=== PATIENT | female | born 1965 | race Caucasian/White ===

== ENCOUNTER 2018-07-22 09:06 | Emergency (ER) | payer MEDICAID, SELFPAY ==
[2018-07-22 09:07] VITALS: BP 119/80; PULSE 94; RESP 16; TEMP 36.3; O2SAT 99; BMI 31.5
[2018-07-22 09:13] VITALS: TEMP 36.3
--- NOTE | 2018-07-22 09:26 | RAD_ITS ---
STUDY: X-RAY CHEST REASON FOR EXAM: Female, 53 years old. TECHNIQUE: COMPARISON: None. FINDINGS: Frontal and lateral views of the chest were obtained. The lungs are clear and expanded. There is no demonstrated pleural abnormality. Normal size heart. Normal mediastinum and jaimie. Normal visualized pulmonary arteries. Normal visualized aortic arch and descending thoracic aorta. Normal visualized thoracic spine. Normal visualized ribs, clavicles, and shoulders. There is no demonstrated abnormality of the visualized soft tissue structures of the upper abdomen. RAD/Chest PA and Lateral IMPRESSION: Normal x-ray examination of the chest. Electronically Signed: Artie Munoz, at 11:45 EST Tel , Service support ,
[2018-07-22] MEDS: Ketorolac 30 MG/ML Syringe IV (09:39)
[2018-07-22] MEDS: 0.9% Normal Saline 1,000 ML 1000 ML IV ×2 (09:39→10:42)
[2018-07-22] MEDS: Ondansetron 4 MG/2 ML Vial IV (09:39)
[2018-07-22 09:44] LABS: Absolute Lymphocyte Count 2.19 X10^3/ul (0.83-4.51); Absolute Neutrophil Count 3.8 X10^3/uL (2.0-7.7); Basophil# 0.02 X10^3/uL; Basophil% 0.3 % (0-1); Eosinophil# 0.11 X10^3/uL; Eosinophils% 1.7 % (0-5); Hematocrit 40.9 % (37-47); Lymphocyte # 2.19 X10^3/ul (4.0); Lymphocyte % 33.9 % (19-41); Mean Corp Hgb Conc 31.8 g/gl (32-36); Mean Corpuscular Hgb 27.9 pg (27.0-32.0); Mean Corpuscular Volume 87.8 fL (81-99); Monocyte% 4.6 % (0-10); Neutrophil # 3.83 X10^3/uL (2.7-7.7); Neutrophil % 59.3 % (47-70); POSITIVE COUNT NO; POSITIVE DIFFERENTIAL NO; POSITIVE MORPHOLOGY NO; Platelet Count 297 K/mm3 (150-450); RBC Distribution Width CV 13.8 % (11.6-14.6); RBC Distribution Width SD 44.2 fl (35.1-43.9); Red Blood Count 4.66 M/mm3 (4.2-5.4); White Blood Count 6.5 K/mm3 (4.4-11.0)
[2018-07-22 09:53] LABS: ALB/GLOB Ratio 0.9 RATIO (0.9-2.4); AST(SGOT) 9 U/L (15-37); Alanine Aminotransfer ALT/SGPT 15 U/L (13-56); Albumin, Serum 3.3 g/dL (3.2-5.0); Alkaline Phosphatase 56 U/L (45-117); Anion Gap 7 (5-15); BUN 11 mg/dL (7-18); BUN/Creat Ratio 13.1 RATIO (10-20); Calcium,Total 8.3 mg/dL (8.5-10.1); Chloride 107 mmol/L (98-107); Creatinine, Serum 0.84 mg/dL (0.55-1.02); EST Glomerular Filtration Rate 76 mL/min (>60); Est Glom Filt Rate - Afr Amer 91 mL/min (>60); Globulin 3.5 g/dL (2.2-4.2); Glucose 108 mg/dL (74-106); Lipase 84 U/L (73-393); Potassium 4.2 mmol/L (3.5-5.1); Protein, Total 6.8 g/dL (6.4-8.2); Sodium Level 141 mmol/L (136-145)
--- NOTE | 2018-07-22 09:58 | ED.VISSUMM ---
- ER Visit Summary Date of Service: 07/22/18 Chief Complaint: Vomiting diarrhea History of Present Illness: The patient is a 53 F who presents with 3 days of vomiting and diarrhea. She has not had any of those today. She notes a cough and runny nose and subjective fever. She states she feels like she has been hit by a bus. Patient called EMS today for transportation to the hospital. The gave her a 200 cc fluid bolus. Her heart rate for EMS was 120. Physical Examination: Afebrile vital signs are stable Gen: Well-nourished well-developed Head: Normocephalic atraumatic Eyes: Perrl EOMI ENT: TMs clear rhinorrhea moist mucous membranes Neck: Supple no lymphadenopathy no JVD nontender CVS: Regular rate rhythm no murmurs normal S1-S2 Respiratory: No distress clear to auscultation bilaterally chest nontender patient has a cough Abdomen: Soft nontender nondistended normal bowel sounds no masses Back: Nontender Extremity: Nontender no edema Skin: Normal color no rash Neuro: alert orientated ?3 CN II-XII intact normal strength sensation reflexes gait cerebellar Psych: Normal affect normal mood Test Results: CBC CMP and lipase were normal. Chest x-ray is negative for infiltrate. Influenza swab is negative. Emergency Department Course and Treatment: Patient received 2 L IV fluids Zofran and Toradol. She will be discharged home with supportive care. I will write for Zofran and encouraged Tylenol ibuprofen. Return if worsening or concerns. Impression: 1. Acute Viral Gastroneuritis This note was generated with [employer] dictation software. It may contain incorrect words, spelling, and punctuation that were not noted in review of the chart prior to signing ED Disposition - Plan for ED Patient: Disposition: Home or Assisted Living Chief Complaint: Nausea/Vomiting/Diarrhea Instructions: ED Gastroenteritis Viral Prescriptions: Ondansetron [Zofran Odt] 4 mg PO Q6H PRN PRN #10 tab PRN Reason: Nausea Referrals: Miles Schneider MD [STAFF PHYSICIAN] - 3-5 Days if not improving
[2018-07-22 11:21] VITALS: BP 132/66; PULSE 71; RESP 15; O2SAT 98
== END 2018-07-22 11:23 | disposition home or self-care (01) ==
PROVIDERS: Emergency Provider Emergency Medicine
DX: K52.9 Noninfective gastroenteritis and colitis, unspecified (principal); Z72.0 Tobacco use
CPT/HCPCS: 71046; 80053; 83690; 85025; 87804; 96361; 96374; 96375; 99285; J7030; J2405

== ENCOUNTER 2018-07-25 12:31 | Emergency (ER) | payer MEDICAID, SELFPAY ==
[2018-07-25] VITALS (10 sets, daily range): BP systolic 119–144; BP diastolic 82–88; PULSE 94–107; RESP 13–18; TEMP 36.5–37; O2SAT 96–100; BMI 30.9
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
--- NOTE | 2018-07-25 14:40 | ED.VISSUMM ---
- ER Visit Summary Date of Service: 07/25/18 Chief Complaint: Scared of myself History of Present Illness: The patient is a 53 F who presents stating that she is scared of herself. She has had thoughts of hurting herself for quite some time but worsened recently. She denies any specific plan. She stopped using amphetamines 4 days ago. She does admit to attempting suicide in the past. She sees [facility] at the [facility] center. She was seen in the ER for nausea, vomiting, diarrhea, and cough on July 22. Labs including influenza swab were negative at that time. Physical Examination: Vital signs unremarkable. Patient is lying in bed, tearful and anxious. Head neck examination is grossly unremarkable. Heart is regular rate and rhythm. Lung sounds are clear. Abdomen is soft and nontender. Psychiatric evaluation reveals her to be tearful and anxious. She does admit to suicidal thoughts without a specific plan. Test Results: CBC and chemistry studies are unremarkable. test negative. EtOH is negative. Tox screen is positive for amphetamines. Emergency Department Course and Treatment: Patient was seen by staff from the [facility] center. Staff member here knows the patient from the [facility] and just saw her 2 weeks ago. She agrees the patient has significantly decompensated since that time. She will require transfer. Treatment Plan: [] Disposition: Transfer Impression: Suicidal ideation This note was generated with [employer] dictation software. It may contain incorrect words, spelling, and punctuation that were not noted in review of the chart prior to signing ED Disposition - Plan for ED Patient: Chief Complaint: Diarrhea Referrals: Care Physician,No Primary [Primary Care Provider] -
--- NOTE | 2018-07-25 14:50 | CM.ED ---
SOCIAL SERVICE ASSESSMENT REFERRAL DATE:07/25/18 DATE OF ASSESSMENT: 07/25/18 INFORMANT: NURSING REASON FOR CONSULT: SUICIDAL INFORMATION OBTAINED FROM: PATIENT AND NURSE LIVING ARRANGEMENTS: PATIENT REPORTS LIVES HOME WITH BOYFRIEND IN A SINGLE STORY HOME WITH NO ACCESS ISSUES. SUPPORTS: PATIENT REPORTS LIMITED SUPPORTS. PT STATES ONLY SUPPORT IS BOYFRIEND, NAKUL DURING. SOCIAL/FAMILY STRESSORS: PATIENT STATES HAS BEEN HAVING SUICIDAL THOUGHTS AND IS NOT ON ANY MEDICATIONS. PATIENT RECENTLY MET WITH DR. DACOSTA AT THE [facility] AND GAVE PERMISSION FOR THIS WORKER TO CALL THE [facility] TO CHECK ON NEXT APPOINTMENT. MENTAL HEALTH HX: PATIENT STATES WAS DIAGNOSED WITH BIPOLAR DISORDER AND SCHIZOPHRENIA 18 YEARS AGO. PATIENT STATES FOLLOWS WITH THE [facility] AND HAS NOT BEEN ON MEDICATIONS IN OVER A YEAR. SUBSTANCE ABUSE HX: PATIENTS ADMITS TO HX OF METH AND REPORTS HAS NOT USED IN OVER A YEAR. PATIENT REPORTS METH IS THE ONLY THING THAT HELPS WITH HER MENTAL HEALTH. INTERVENTIONS: PATIENT TO BE ASSESSED BY THE [facility] D/T SUICIDAL IDEATION WITH PLAN. PATIENT ALSO MADE THREATS TO THIS WORKER, I THINK YOU NEED TO LEAVE OR I AM GOING TO HURT YOU. ATTEMPTED TO EXPLAIN SUICIDAL PRECAUTIONS WITH PATIENT AND THAT A SITTER WILL BE PRESENT WITH PATIENT IN THE ROOM. PATIENT DID VERBALIZE UNDERSTANDING. ASSESSMENT: SOCIAL SERVICE ASSESSMENT COMPLETED. PATIENT IS A 53 Y/O FEMALE WHO CAME TO THE ED FOR DIARRHEA AND REPORTS JUST SAID THAT TO GET HELP. PATIENT STATES IS HAVING SUICIDAL THOUGHTS AND PLAN IS TO JUMP OFF THE BRIDGE BY AN OVERPASS. PATIENT ADMITS TO HX OF MENTAL HEALTH AND STATES WAS DIAGNOSED WITH BIPOLAR DISORDER AND SCHIZOPHRENIA. PATIENT STATES FOLLOWS WITH DR. DACOSTA AT THE [facility]. PATIENT ADMITS TO HX OF SUBSTANCE USE: METH AND REPORTS HAS NOT USED IN OVER 1 YEAR. PATIENT LAID IN BED WITH EYES CLOSED DURING ASSESSMENT. WHILE ATTEMPTING TO ASK ADDITIONAL QUESTIONS PATIENT ROLLED OVER ON SIDE AWAY FROM THIS WORKER AND STATED, I THINK YOU NEED TO LEAVE OR I'M GOING TO HURT YOU. INFORMED PATIENT THAT A SPOILAGE WORKER WILL BE OVER TO ASSESS PATIENT D/T SUICIDAL THOUGHTS. PATIENT STATES HAS BEEN PLACED IN A PSYCH FACILITY BEFORE AND VERBALIZES UNDERSTANDING OF CRISIS ASSESSMENT. UPDATED NURSING ON THIS WORKER'S ASSESSMENT OF PATIENT. SPOILAGE WORKER TO EVAL. PLAN: PATIENT TO BE EVALUATED BY CRISIS.
[2018-07-25 15:00] LABS: Absolute Lymphocyte Count 2.39 X10^3/ul (0.83-4.51); Absolute Neutrophil Count 4.4 X10^3/uL (2.0-7.7); Basophil# 0.01 X10^3/uL; Basophil% 0.1 % (0-1); Eosinophil# 0.13 X10^3/uL; Eosinophils% 1.8 % (0-5); Hematocrit 44.8 % (37-47); Hemoglobin 14.3 g/dl (12.0-15.0); Lymphocyte # 2.39 X10^3/ul (4.0); Lymphocyte % 33.3 % (19-41); Mean Corp Hgb Conc 31.9 g/gl (32-36); Mean Corpuscular Hgb 28.1 pg (27.0-32.0); Mean Corpuscular Volume 88.2 fL (81-99); Mean Platelet Vol. 9.2 fl (6.2-12.0); Monocyte# 0.29 X10^3/uL; Neutrophil # 4.35 X10^3/uL (2.7-7.7); Neutrophil % 60.8 % (47-70); Platelet Count 326 K/mm3 (150-450); RBC Distribution Width CV 13.5 % (11.6-14.6); RBC Distribution Width SD 43.8 fl (35.1-43.9); Red Blood Count 5.08 M/mm3 (4.2-5.4); White Blood Count 7.2 K/mm3 (4.4-11.0)
[2018-07-25 15:02] LABS: POSITIVE COUNT NO; POSITIVE DIFFERENTIAL NO; POSITIVE MORPHOLOGY NO
[2018-07-25 15:09] LABS: Anion Gap 7 (5-15); BUN 10 mg/dL (7-18); BUN/Creat Ratio 12.2 RATIO (10-20); Calcium,Total 9.1 mg/dL (8.5-10.1); Chloride 104 mmol/L (98-107); Creatinine, Serum 0.82 mg/dL (0.55-1.02); EST Glomerular Filtration Rate 78 mL/min (>60); Est Glom Filt Rate - Afr Amer 94 mL/min (>60); Estimated Creatinine Clearance 72.22 ml/min; Glucose 84 mg/dL (74-106); Sodium Level 139 mmol/L (136-145)
[2018-07-25 15:34] LABS: Alcohol, Blood (Medical)-Serum < 3.0 mg/dL
[2018-07-25 15:38] LABS: Pregnancy, Serum, hCG Quali. NEGATIVE Negative (0-9 Nonpreg)
--- NOTE | 2018-07-25 16:33 | NURSING ---
CALLED CRISIS, JUSTINA WILL BE MADE AWARE
[2018-07-25 17:36] LABS: Amphetamine Urine VISTA POSITIVE (<1000 ng/mL); Barbiturate Urine VISTA NEGATIVE (< 200 ng/mL); Benzodiazepine Urine VISTA NEGATIVE (< 200 ng/mL); Cocaine Urine VISTA NEGATIVE (< 300 ng/mL); Ecstacy Urine VISTA NEGATIVE (< 500 ng/mL); Methadone Urine VISTA NEGATIVE (< 300 ng/mL); PCP Urine VISTA NEGATIVE (< 25 ng/mL); THC Urine VISTA NEGATIVE (< 50 ng/mL); Vista UDS pH Range 6
--- NOTE | 2018-07-25 17:48 | NURSING ---
PATRICIA, CRISIS, HERE
--- NOTE | 2018-07-25 23:41 | ED.RN ---
INFORMED BY CRISIS THAT THIS PT [facility]HD ACCEPTANCE AT 2330, UNABLE TO GET TRANSPORT TILL MORNING
[2018-07-26] VITALS (10 sets, daily range): BP systolic 123–124; BP diastolic 82–97; PULSE 104–112; RESP 13–16; O2SAT 97
--- NOTE | 2018-07-26 00:34 | ED.RN ---
REPORT CALLED TO [facility]. TRANSPORT UNAVAILABLE UNTIL MORNING.
--- NOTE | 2018-07-26 06:28 | ED.RN ---
patient awoke and stated she is leaving. Advised patient that she has been accepted to [facility] and she is pink slipped and unable to leave. Patient does not agree that she has been here for 73 hours and is leaving. Patient redirected and laid back down to sleep.
--- NOTE | 2018-07-26 07:10 | NURSING ---
CALLED [facility]. ETA IS [phone]
== END 2018-07-26 09:12 | disposition home or self-care (01) ==
PROVIDERS: Emergency Provider Emergency Medicine
DX: R45.851 Suicidal ideations (principal); F41.9 Anxiety disorder, unspecified; Z72.0 Tobacco use; F15.90 Other stimulant use, unspecified, uncomplicated
CPT/HCPCS: 80048; 80307; 80320; 84703; 85025; 99285; G0480

== ENCOUNTER 2018-08-11 13:23 | Emergency (ER) | payer MEDICAID, SELFPAY ==
[2018-07-25 12:32] VITALS: BMI 30.9
[2018-08-11] VITALS (7 sets, daily range): BP systolic 118–134; BP diastolic 81–91; PULSE 16–114; RESP 16–18; TEMP 36.6; O2SAT 94–97; BMI 31.5
--- NOTE | 2018-08-11 13:47 | NURSING ---
Pt wrapped her crack candelario in several papertowels and crushed it. Asked pt to not due to risk of being cut and scattering glass fragments but pt became angry and states that RN was disrespecting her. Pt then denied any suiciidal iideation, and stated but ii am feeling homicidal; agaiinst you looking directly at this RN. Pt states I want to make you hurt.
[2018-08-11 14:07] LABS: Absolute Lymphocyte Count 2.43 X10^3/ul (0.83-4.51); Absolute Neutrophil Count 6.3 X10^3/uL (2.0-7.7); Basophil# 0.02 X10^3/uL; Basophil% 0.2 % (0-1); Eosinophil# 0.12 X10^3/uL; Eosinophils% 1.3 % (0-5); Hematocrit 36.5 % (37-47); Hemoglobin 11.5 g/dl (12.0-15.0); Lymphocyte # 2.43 X10^3/ul (4.0); Lymphocyte % 25.9 % (19-41); Mean Corp Hgb Conc 31.5 g/gl (32-36); Mean Corpuscular Hgb 27.7 pg (27.0-32.0); Mean Platelet Vol. 9.3 fl (6.2-12.0); Monocyte# 0.46 X10^3/uL; Monocyte% 4.9 % (0-10); Neutrophil # 6.33 X10^3/uL (2.7-7.7); Neutrophil % 67.5 % (47-70); Platelet Count 376 K/mm3 (150-450); RBC Distribution Width CV 14.1 % (11.6-14.6); RBC Distribution Width SD 44.9 fl (35.1-43.9); Red Blood Count 4.15 M/mm3 (4.2-5.4); White Blood Count 9.4 K/mm3 (4.4-11.0)
[2018-08-11 14:08] LABS: POSITIVE COUNT NO; POSITIVE DIFFERENTIAL NO; POSITIVE MORPHOLOGY NO
[2018-08-11 14:18] LABS: Anion Gap 14 (5-15); BUN 10 mg/dL (7-18); BUN/Creat Ratio 12.5 RATIO (10-20); Chloride 116 mmol/L (98-107); EST Glomerular Filtration Rate 80 mL/min (>60); Est Glom Filt Rate - Afr Amer 96 mL/min (>60); Estimated Creatinine Clearance 74.02 ml/min; Glucose 94 mg/dL (74-106); Sodium Level 155 mmol/L (136-145)
[2018-08-11 14:25] LABS: Pregnancy, Serum, hCG Quali. NEGATIVE Negative (0-9 Nonpreg)
[2018-08-11 14:25] LABS: Amphetamine Urine VISTA POSITIVE (<1000 ng/mL); Barbiturate Urine VISTA NEGATIVE (< 200 ng/mL); Benzodiazepine Urine VISTA NEGATIVE (< 200 ng/mL); Cocaine Urine VISTA NEGATIVE (< 300 ng/mL); Ecstacy Urine VISTA NEGATIVE (< 500 ng/mL); Methadone Urine VISTA NEGATIVE (< 300 ng/mL); PCP Urine VISTA NEGATIVE (< 25 ng/mL); THC Urine VISTA POSITIVE (< 50 ng/mL); Vista UDS pH Range 5
--- NOTE | 2018-08-11 14:38 | ED.RN ---
CALLED [facility]; JUSTINA WILL CALL BACK WITH CRISIS
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
--- NOTE | 2018-08-11 14:40 | ED.RN ---
SPOKE WITH JUSTINA AT CRISIS; STATED HE IS HEADED TO OUR FACILITY TO EVALUATE A PT ON [facility], AFTER THAT HE HAS TO GO TO [facility] TO EVAL A PT THERE THEN HE WILL BE BACK TO SEE THIS PT
[2018-08-11 15:12] LABS: Alcohol, Blood (Medical)-Serum < 3.0 mg/dL
--- NOTE | 2018-08-11 15:20 | ED.DCSUM_ITS ---
- ER Visit Summary Date of Service: 08/11/18 Chief Complaint: Suicidal ideation History of Present Illness: The patient is a 53 F with history of bipolar disorder and schizophrenia. Patient was recently admitted to [facility] for approximately 8 days. Patient states she was discharged back to [facility] but [facility]. She was staying with a friend as well as her daughter but was kicked out of both places. She somehow ended up at a local [facility] this morning and the director communications brought the patient in. Patient admits to using meth again. She reports suicidal ideation with plan to jump from a bridge. Physical Examination: Vital signs significant only for heart rate of 114. Patient has labile emotions. She is in no acute distress. Head neck examination grossly unremarkable. Heart is regular rate and rhythm. Lungs sounds are clear. Abdomen is soft and nontender. Psychiatric evaluation reveals tangential thought process with pressured speech and suicidal thoughts. Test Results: CBC reveals a normal white count hemoglobin 11.5. Chemistry studies significant for sodium of 155 and a chloride of 116. Renal function is normal. Tox screen is positive for cannabinoids and amphetamines. EtOH is negative. Emergency Department Course and Treatment: Patient is being given water to drink. She will have electrolytes rechecked. Counseling center has been contacted for evaluation. Social work is also been involved in the patient's care. Treatment Plan: [] Disposition: Pending crisis evaluation Impression: 1. Suicidal ideation 2. Hypernatremia This note was generated with [employer] dictation software. It may contain incorrect words, spelling, and punctuation that were not noted in review of the chart prior to signing ED Disposition - Plan for ED Patient: Chief Complaint: Suicidal Referrals: Care Physician,No Primary [Primary Care Provider] -
[2018-08-11 17:21] LABS: Anion Gap 9 (5-15); BUN 9 mg/dL (7-18); BUN/Creat Ratio 12.9 RATIO (10-20); Calcium,Total 8.6 mg/dL (8.5-10.1); Chloride 109 mmol/L (98-107); EST Glomerular Filtration Rate 94 mL/min (>60); Est Glom Filt Rate - Afr Amer 114 mL/min (>60); Glucose 91 mg/dL (74-106); Potassium 3.6 mmol/L (3.5-5.1); Sodium Level 143 mmol/L (136-145)
--- NOTE | 2018-08-11 18:03 | ED.RN ---
PER JUSTINA WITH CRISIS; HE JUST GOT TO [facility]; HE HAS NO ETA ON ARRIVAL TO OUR FACILITY
--- NOTE | 2018-08-11 21:18 | EKG12_ITS ---
Test Reason : Blood Pressure : / mmHG Vent. Rate : 095 BPM Atrial Rate : 095 BPM P-R Int : 192 ms QRS Dur : 078 ms QT Int : 368 ms P-R-T Axes : 074 027 041 degrees QTc Int : 462 ms Sinus rhythm with occasional Premature ventricular complexes Possible Left atrial enlargement Borderline ECG Confirmed by FREDRICK PIKE, BAUTISTA ([id number]), purchasing expeditor MYLENE BARCLAY ([id number]) on 08/13/2018 5:08:51 PM Referred By: BRIONNA Confirmed By:BAUTISTA ALCALA MD
[2018-08-11 21:35] LABS: Bacteria 0 SEEN /hpf (None Seen); Mucous, Urine 0 SEEN /hpf (<or=2+); Red Blood Cells-Urine 0 SEEN /hpf (0-5)
[2018-08-11 21:36] LABS: AST(SGOT) 16 U/L (15-37); Alanine Aminotransfer ALT/SGPT 22 U/L (13-56); Albumin, Serum 3.3 g/dL (3.2-5.0); Alkaline Phosphatase 55 U/L (45-117); Bilirubin, Direct 0.15 mg/dL (0.00-0.30); Globulin 3.1 g/dL (2.2-4.2); Protein, Total 6.4 g/dL (6.4-8.2)
[2018-08-11 21:43] LABS: Color, Urine Yellow (Yellow); Glucose, Dipstick Normal (Normal); Ketone-Dipstick 5 mg/dl (Negative); Leukocyte Esterase-Dipstick 100 /ul (Negative); Nitrite-Dipstick Negative (Negative); Occult Blood-Urine Negative /ul (Negative); Protein-Dipstick Negative (Negative); Urine Bilirubin Dipstick Negative (Negative); Urine Clarity Turbid (Clear); Urine Urobilinogen Normal (Normal); Urine pH 6.5 (5.0 - 8.0)
[2018-08-11 22:17] LABS: Squamous Epithelial Cells - UA 0-5 SEEN /hpf (5-10); White Blood Cells 10-25 SEEN /hpf (0-5)
[2018-08-11 22:18] LABS: Amorphous Sediment 2+
[2018-08-12] VITALS (10 sets, daily range): BP systolic 108–127; BP diastolic 58–75; PULSE 70–101; RESP 12–19; TEMP 36.7; O2SAT 96–99
--- NOTE | 2018-08-12 01:16 | ED.RN ---
THIS RN RECEIVED A CALL FROM [facility]. PT HAS BEEN ACCEPTED AND IS AWAITING AN AVAILABLE BED.
--- NOTE | 2018-08-12 11:05 | NURSING ---
CRISIS CALLED. SHE WILL BE HERE TO WORK ON ADMISSION
--- NOTE | 2018-08-12 11:27 | NURSING ---
TJ,CRISIS, HERE FOR PATIENT
--- NOTE | 2018-08-12 12:49 | NURSING ---
ACCEPTED AT [facility]
--- NOTE | 2018-08-12 16:30 | NURSING ---
CALLED [facility] ABOUT ETA. WILL BE ANOTHER 30 TO 45 MIN
--- NOTE | 2018-08-12 17:20 | ED.RN ---
EMS arrives to transport at 1705. Bedside report given. Pt belongings given to squad. Pt transfers with EMS with no resistance.
== END 2018-08-12 17:20 ==
PROVIDERS: Emergency Medicine; Emergency Provider Emergency Medicine
DX: R45.851 Suicidal ideations (principal); E87.0 Hyperosmolality and hypernatremia; Z72.0 Tobacco use; F15.90 Other stimulant use, unspecified, uncomplicated
CPT/HCPCS: 36415; 80048; 80076; 80307; 80320; 81001; 84703; 85025; 93005; 99284; G0480

== ENCOUNTER → 2020-05-28 13:21 | Outpatient (CLI) | payer MEDICAID, SELFPAY ==
[2020-05-25 09:16] VITALS: BMI 35.4
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
== END ==
PROVIDERS: Referring Provider Psychiatry & Neurology Neurology; Visit Provider Psychiatry & Neurology Neurology
DX: G56.03 Carpal tunnel syndrome, bilateral upper limbs (principal); M54.2 Cervicalgia
CPT/HCPCS: 95886; 95910

== ENCOUNTER 2020-12-01 12:29 | Emergency (ER) | payer MEDICAID, SELFPAY ==
[2020-05-25 09:16] VITALS: BMI 35.4
[2020-12-01 12:30] VITALS: BP 135/85; PULSE 78; RESP 16; TEMP 36.8; O2SAT 99; BMI 33.3
--- NOTE | 2020-12-01 13:06 | EX.ED.UPPERE ---
HPI History of Present Illness Chief Complaint: Laceration Narrative Narrative: Patient presents with right hand laceration it is in between the fourth and fifth digit after working on a car window mechanism. This happened 13 hours ago. No other injuries. [facility] Medical History (Updated 12/01/20 @ 13:[address] Hardy Aldana MD) Bipolar disorder Home Medications albuterol sulfate 90 mcg/actuation aerosol inhaler INHALATION 05/25/20 [History Last Taken Unknown] benztropine 1 mg tablet 1 mg PO DAILY tab 05/25/20 [History Last Taken Unknown] cholecalciferol (vitamin D3) 50 mcg (2,000 unit) capsule 2,000 unit PO DAILY cap 05/25/20 [History Last Taken Unknown] cyanocobalamin (vitamin B-12) 500 mcg tablet 500 mcg PO DAILY 05/25/20 [History Last Taken Unknown] fluoxetine 20 mg capsule 20 mg PO DAILY cap 05/25/20 [History Last Taken Unknown] omeprazole 40 mg capsule,delayed release 40 mg PO DAILY 05/25/20 [History Last Taken Unknown] ondansetron HCl 4 mg tablet ea PO 05/25/20 [History Last Taken Unknown] potassium chloride 20 mEq tablet,extended release(part/cryst) 20 meq PO DAILY tab 05/25/20 [History Last Taken Unknown] risperidone 2 mg tablet 2 mg PO DAILY tab 05/25/20 [History Last Taken Unknown] trazodone 100 mg tablet 100 mg PO BID tab 05/25/20 [History Last Taken Unknown] baclofen 10 mg tablet 10 mg PO TID PRN #90 tab 06/17/20 [Rx Last Taken Unknown] diclofenac sodium 75 mg tablet,delayed release 75 mg PO BID PRN #60 tab 06/17/20 [Rx Last Taken Unknown] loratadine 10 mg tablet 10 mg PO DAILY #30 tab 06/17/20 [Rx Last Taken Unknown] Allergy/AdvReac Type Severity Reaction Status Date / Time duloxetine Allergy Unknown Itching/Preet Verified 12/01/20 12:30 h pregabalin Allergy Unknown Rash Verified 12/01/20 12:30 codeine phosphate Allergy Itching Verified 12/01/20 12:30 [From Tylenol-Codeine #3] hydrocodone bitartrate Allergy Itching Verified 12/01/20 12:30 [From Vicodin] Family History Mother Alzheimers disease Grandmother Alzheimers disease Social History (Updated 06/17/20 @ 18:[address] Adryan Aguilera MD) Smoking Status: Current every day smoker ROS ROS ED ROS Narrative Past medical history: none Medications: Reviewed Social history: Noncontributory Review of systems: Musculoskeletal: Laceration as above Skin: Laceration as above Neurological: No weakness or paresthesias Hematologic: No easy bleeding or easy bruising EXAM Physical Exam Narrative Exam Narrative: Physical exam General: Patient does not appear in significant distress . Head: Normocephalic, Atraumatic Neck: No C-spine tenderness Cardiovascular: Regular rate, Regular rhythm Respiratory: No distress, CTA bilaterally Back: Nontender, Normal Inspection. Extremities: There is a 0.5 cm laceration in between the fourth and fifth digit it looks like it is already healing there is pink granulation tissue. No neurovascular compromise. Skin: As above Neurological: Normal strength and sensation Const Vital Signs: 12/01/20 12:30 Temperature 98.3 F Temperature Source Temporal Pulse Rate 78 Respiratory Rate 16 Blood Pressure 135/85 H Blood Pressure Mean 101 Pulse Ox 99 Oxygen Delivery Method Room Air MDM MDM MDM Narrative Medical decision making narrative: Wound is small and too old to suture. We will bandage. Tetanus is up-to-date. Discharge Plan Triage Chief Complaint: Laceration ED Provider: Hardy Aldana Dx/Rx/DC Orders Clinical Impression: Laceration Instructions: ED Laceration, Old: Not Sutured Prescriptions: No Action cyanocobalamin (vitamin B-12) [Vitamin B-12] 500 mcg tablet 500 mcg PO DAILY RF: 0 omeprazole 40 mg capsule,delayed release(DR/EC) 40 mg PO DAILY RF: 0 albuterol sulfate 90 mcg/actuation HFA aerosol inhaler INHALATION RF: 0 ondansetron HCl 4 mg tablet PO RF: 0 fluoxetine 20 mg capsule 20 mg PO DAILY RF: 0 risperidone 2 mg tablet 2 mg PO DAILY RF: 0 benztropine 1 mg tablet 1 mg PO DAILY RF: 0 trazodone 100 mg tablet 100 mg PO BID RF: 0 cholecalciferol (vitamin D3) 50 mcg (2,000 unit) capsule 2,000 unit PO DAILY RF: 0 potassium chloride 20 mEq tablet,ER particles/crystals 20 meq PO DAILY RF: 0 diclofenac sodium 75 mg tablet,delayed release (DR/EC) 75 mg PO BID PRN (Reason: headache/pain) Qty: 60 RF: 1 loratadine 10 mg tablet 10 mg PO DAILY Qty: 30 RF: 2 baclofen 10 mg tablet 10 mg PO TID PRN (Reason: muscle pain and spasm) Qty: 90 RF: 2 Primary Care Provider: [facility] Doctor,Out of Referrals: [facility] Doctor,Out of [Primary Care Provider] - 2 Days for wound check
== END 2020-12-01 13:37 | disposition home or self-care (01) ==
PROVIDERS: Emergency Provider Emergency Medicine
DX: S61.411A Laceration without foreign body of right hand, initial encounter (principal); F17.200 Nicotine dependence, unspecified, uncomplicated; X58.XXXA Exposure to other specified factors, initial encounter; Z79.899 Other long term (current) drug therapy
CPT/HCPCS: 99282

== ENCOUNTER 2023-12-04 02:12 | Emergency (ER) | payer MEDICAID, SELFPAY ==
[2023-12-04 02:14] VITALS: BP 134/91; PULSE 105; RESP 16; TEMP 36.2; O2SAT 97; BMI 28.6
--- NOTE | 2023-12-04 02:42 | RAD_ITS ---
INDICATION: PAIN, INJURY EXAMINATION/TECHNIQUE: X-RAY - RIGHT XR Hand Min 3 Views 3 VIEWS COMPARISON: FINDINGS: BONES: Acute fracture base of the fifth metacarpal with minimal dorsal displacement. JOINTS: No dislocation. SOFT TISSUES: Soft tissue swelling dorsally overlying the metacarpals. RAD/Hand Min 3 Views IMPRESSION: Acute fracture proximal fifth metacarpal. Electronically Signed: Zonia Lala MD at 4:03 EDT ,
--- NOTE | 2023-12-04 03:01 | EX.ED.UPPERE ---
HPI History of Present Illness Chief Complaint: Upper Extremity Injury Informant: patient Narrative Narrative: Patient states yesterday she fell onto her right hand on accident. She injured it it has been swollen, she went to hospital in [place] and had x-rays but was told it was negative and she does not believe them and wants us to do x-rays as well because it was more swollen, bruised, and very painful. She is right-hand dominant. She denies any numbness. She can move her wrist okay, the pain is mostly in the ulnar aspect of the hand moving her fingers is more painful. [facility] Medical History (Updated 12/04/23 @ 04:[address] Geraldo Loredo MD) Bipolar disorder Home Medications benztropine 1 mg tablet 1 mg PO DAILY 05/25/20 [History Last Taken Unknown] cholecalciferol (vitamin D3) 50 mcg (2,000 unit) capsule 2,000 unit PO DAILY 05/25/20 [History Last Taken Unknown] cyanocobalamin (vitamin B-12) 500 mcg tablet (Vitamin B-12) 500 mcg PO DAILY 05/25/20 [History Last Taken Unknown] omeprazole 40 mg capsule,delayed release 40 mg PO DAILY 05/25/20 [History Last Taken Unknown] risperidone 2 mg tablet 2 mg PO DAILY 05/25/20 [History Last Taken Unknown] trazodone 100 mg tablet 100 mg PO BID 05/25/20 [History Last Taken Unknown] loratadine 10 mg tablet 10 mg PO DAILY #30 tabs 06/17/20 [Rx Last Taken Unknown] Allergy/AdvReac Type Severity Reaction Status Date / Time duloxetine Allergy Unknown Itching/Preet Verified 12/04/23 02:13 h pregabalin Allergy Unknown Rash Verified 12/04/23 02:13 codeine phosphate Allergy Itching Verified 12/04/23 02:13 [From Tylenol-Codeine #3] hydrocodone bitartrate Allergy Itching Verified 12/04/23 02:13 [From Vicodin] Family History Mother Alzheimers disease Grandmother Alzheimers disease Social History Smoking Status: Current every day smoker tobacco type: cigarettes ROS ROS ED Constitutional Constitutional ED: Denies chills or fever(s) Musculoskeletal Musculoskeletal: Reports extremity pain; Denies neck pain Integumentary Denies Abrasions, rash or wounds Neurologic Neurologic: Denies paresthesias or weakness EXAM Physical Exam Const Vital Signs: 12/04/23 02:14 Temperature 97.2 F L Temperature Source Temporal Pulse Rate 105 H Respiratory Rate 16 Blood Pressure 134/91 H Blood Pressure Mean 105 Pulse Ox 97 Positive well nourished and well developed General Appearance ED: well developed and NAD Neck full ROM and supple Back/Spine normal ROM and normal to inspection Extremity Extremity Narrative: Very swollen right hand without involvement of the fingers. Limited range of motion of the fingers due to pain in the hand. The fingers are nontender, except for the MCPJ #4 and 5, she is most tender in those metacarpals, but they are difficult to palpate through all of the edema throughout the dorsum of the hand. She has ecchymosis in the middle of the palm. The hypothenar and thenar eminences are soft and nondistended. She can move the thumb okay she can move the wrist okay without significant discomfort and does not have any pain or tenderness there with palpation. There are no open wounds or deformities. She is holding the majority of the fingers in gentle flexion position of comfort no rotational deformity seen. Neuro oriented x3, no focal motor deficits and no sensory deficits noted Sensorium / Orientation: alert Psych mental status grossly normal and thought process normal Skin no wounds Rashes: no rashes MDM MDM MDM Narrative Medical decision making narrative: Three-view x-ray series of the right hand suspicious for acute fracture at proximal fifth metacarpal on my interpretation. Radiology in agreement. Patient placed in an ulnar gutter splint. She states she is recovering addict and does not want any prescription narcotics for pain but she except some ibuprofen and an orthopedic referral. Procedures Upper Extremity Splints Upper Extremity Splint: Orthoglass and Ulnar gutter (Short arm) Splint Fabrication: Fabricated Location: Right (Neurovascularly intact distally after placement) Discharge Plan Triage Chief Complaint: Upper Extremity Injury ED Provider: Geraldo Loredo Dx/Rx/DC Orders Clinical Impression: Fracture of base of fifth metacarpal bone of right hand Instructions: ED Closed Hand Fracture (Adult), ED Splint Care, Fiberglass Prescriptions: No Action cyanocobalamin (vitamin B-12) [Vitamin B-12] 500 mcg tablet 500 mcg PO DAILY omeprazole 40 mg capsule,delayed release(DR/EC) 40 mg PO DAILY risperidone 2 mg tablet 2 mg PO DAILY benztropine 1 mg tablet 1 mg PO DAILY trazodone 100 mg tablet 100 mg PO BID cholecalciferol (vitamin D3) 50 mcg (2,000 unit) capsule 2,000 unit PO DAILY loratadine 10 mg tablet 10 mg PO DAILY Qty: 30 2RF Primary Care Provider: Care Physician,No Primary Referrals: Arun Parks DO [Med Staff - Active Staff] - As soon as possible (call for appt) Disposition Disposition: Home, Self Care
[2023-12-04 04:36] VITALS: BP 135/81; PULSE 85; RESP 16; TEMP 36.8; O2SAT 99
== END 2023-12-04 04:42 | disposition home or self-care (01) ==
PROVIDERS: Emergency Provider Emergency Medicine; Visit Provider Emergency Medicine
DX: S62.316A Displaced fracture of base of fifth metacarpal bone, right hand, initial encounter for closed fracture (principal); F31.9 Bipolar disorder, unspecified; F17.210 Nicotine dependence, cigarettes, uncomplicated; W19.XXXA Unspecified fall, initial encounter; Z79.899 Other long term (current) drug therapy
CPT/HCPCS: 29125; 73130; 99282